=== PATIENT | male | born 1995 | race African-American/Black ===

== ENCOUNTER 2020-10-25 21:34 | Emergency (ER) | payer MEDICAID, OTHER ==
[~2020-10-25] VITALS: Ht 177.8 cm; Wt 73.0 kg
[2020-10-25] MEDS ORDERED: SODIUM CHLORIDE 0.9% 1,000 ML IV ONE (22:15)
[2020-10-25] MEDS ORDERED: LORAZEPAM 2MG/ML CPJ IV ONE (22:15)
[2020-10-25 22:57] LABS: *AMPHETAMINES SCREEN URINE NEGATIVE (NEGATIVE); *BARBITURATES SCREEN URINE NEGATIVE (NEGATIVE)
[2020-10-25 22:58] LABS: *BENZODIAZEPINES SCREEN URINE NEGATIVE (NEGATIVE); *COCAINE SCREEN URINE NEGATIVE (NEGATIVE); METHADONE URINE SCREEN NEGATIVE (NEGATIVE); OPIATES URINE SCREEN NEGATIVE (NEGATIVE); PHENCYCLIDINE URINE SCREEN NEGATIVE (NEGATIVE)
[2020-10-25 22:59] LABS: CANNABINOID URINE SCREEN NEGATIVE (NEGATIVE)
[2020-10-25 23:13] LABS: BASOPHILS % 0.4 % (0.0-2.0); EOSINOPHILS % 0.2 % (0.0-5.0); HEMATOCRIT. 41.5 % (42.0-52.0); HEMOGLOBIN. 14.3 g/dL (14.0-18.0); LYMPHOCYTES % 11.9 % (20.0-50.0); MEAN CORPUSCULAR HEMOGLOBIN 28.5 pg (28.0-32.0); MEAN CORPUSCULAR VOLUME 82.9 fL (80.0-94.0); MEAN PLATELET VOLUME 7.7 fl (7.4-10.4); MONOCYTES % 5.9 % (2.0-8.0); NEUTROPHILS % 81.6 % (40.0-76.0); PLATELET 225 x1000/uL (130-400); RED BLOOD CELL COUNT 5.01 mill/uL (4.7-6.1); RED CELL DISTRIBUTION WIDTH 13.2 % (11.6-14.6)
[2020-10-25 23:19] LABS: CHLORIDE 106 mEq/L (98-107)
[2020-10-25] MEDS ORDERED: POTASSIUM CHLORIDE 20MEQ/PACKET PO ONE (23:30)
[2020-10-25] MEDS ORDERED: KCL 20MEQ/100ML PREMIX 100 ML IV ONE (23:30)
[2020-10-25] MEDS ORDERED: MAGNESIUM 2 G PREMIX 50 ML IV ONE (23:30)
[2020-10-26 01:50] VITALS: BP 122/74
== END 2020-10-26 02:00 | disposition home or self-care (01) ==
LOC: ER 21:34
DX: R07.9 Chest pain, unspecified (principal); F41.9 Anxiety disorder, unspecified; Z88.0 Allergy status to penicillin
CPT/HCPCS: 36415; 71045; 80053; 80305; 84484; 85025; 93005; 96361; 96365; 96366; 96375; 99285; J2060; J3475; J3480; J7030; Z7610